=== PATIENT | male | born 2000 | race Caucasian/White ===

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

== ENCOUNTER 2023-03-04 11:32 | Outpatient (CLI) | payer OTHER ==
--- NOTE | 2023-03-04 17:25 | Ultrasound Report ---
PROCEDURE: Head or Neck Soft Tissue INDICATIONS: ANTERIOR CERVICAL LYMPHADENOPATHY TECHNIQUE: Real-time scanning was performed of the thyroid gland, with image documentation. COMPARISON: None FINDINGS: Multiple lymph nodes are identified within the left neck at area of palpable concern. Normal cortex a nd fatty hilum are identified. There are no enlarged lymph nodes by size criteria. IMPRESSION: Normal appearing lymph nodes. Reviewed by: Leeanna Baires MD on 03/04/2023 5:24 PM PDT Approved by: Leeanna Baires MD on 03/04/2023 5:24 PM PDT Station ID: [id number]
== END 2023-03-04 11:33 | disposition home or self-care (01) ==
LOC: DI 11:32
PROVIDERS: ATTEND Nurse Practitioner Family
DX: R59.0 Localized enlarged lymph nodes (principal)